=== PATIENT | male | born 1980 | race Caucasian/White ===

== ENCOUNTER 2020-12-19 11:50 | Emergency (ER) | payer OTHER ==
[~2020-12-19] VITALS: Ht 188 cm; Wt 90.9 kg
[2020-12-19] MEDS ORDERED: PEPC40TA12 PO (12:05)
[2020-12-19] MEDS ORDERED: PANTOPRAZOLE 40MG VIAL (C9113 PER 1) IV ONE (12:35)
[2020-12-19] MEDS ORDERED: NS 1,000 ML IV SCH (12:35)
[2020-12-19] MEDS ORDERED: METOCLOPRAMIDE INJ 10MG/2ML VIAL (J2765 PER 1) IV ONE (12:35)
[2020-12-19 12:41] LABS: BASO # 0.1 10^3/uL (0.0-0.2); BASO % 1.2 % (0.0-1.0); EOS # 0.2 10^3/uL (0.0-0.5); HEMATOCRIT 42.8 % (42.0-52.0); HEMOGLOBIN 14.2 g/dl (13.5-17.5); LYMPH # 1.5 10^3/uL (1.5-5.0); LYMPH % 35.6 % (24.0-44.0); MEAN CORPUSCULAR HEMOGLOBIN 29.6 pg (27.0-33.0); MEAN CORPUSCULAR HGB CONC 33.2 g/dl (32.0-36.5); MEAN CORPUSCULAR VOLUME 89.2 fl (80.0-96.0); MONO # 0.5 10^3/uL (0.0-0.8); MONO % 12.6 % (2.0-8.0); NEUTROPHILS % 46.4 % (36.0-66.0); PLATELET COUNT, AUTOMATED 262 10^3/uL (150-450); WHITE BLOOD COUNT 4.3 10^3/uL (4.0-10.0)
[2020-12-19 12:54] LABS: INR 0.99; PROTHROMBIN TIME 13.3 SECONDS (12.5-14.3)
[2020-12-19 12:55] LABS: PARTIAL THROMBOPLASTIN TIME 29.3 SECONDS (24.2-38.5)
[2020-12-19] MEDS: GASTROGRAFIN SOLUTION 30ML PO SCH ×2 (13:05→13:42)
[2020-12-19 13:08] LABS: BILIRUBIN,DIRECT 0.1 MG/DL (0.0-0.2); BILIRUBIN,TOTAL 0.3 MG/DL (0.2-1.0); C REACTIVE PROTEIN QUANTITATIV 0.45 MG/DL (0.00-0.30); TOTAL PROTEIN 7.1 GM/DL (6.4-8.2)
[2020-12-19 13:26] LABS: ERYTHROCYTE SEDIMENTATION RATE 6 mm/hr (0-15)
--- NOTE | 2020-12-19 13:32 | REP ---
INDICATION: Abdominal Pain. COMPARISON: None. TECHNIQUE: Supine and erect views of the abdomen and pelvis, frontal view chest. FINDINGS: There is no free intraperitoneal air. Diffuse air-filled bowel loops are seen throughout the abdomen and pelvis which do not appear to be significantly dilated, in a nonspecific pattern. There is no compelling evidence for small bowel obstruction. There are no air-fluid levels on the upright view. Phleboliths are seen in the inferior pelvis. A couple of metallic clips are seen in the right lower quadrant. No infiltrate is seen in either lung. The heart mediastinum are within normal limits. IMPRESSION: No free air and no compelling evidence of small bowel obstruction. Non-specific bowel gas pattern. Lungs are clear. <Electronically signed by Harvinder Grande > 12/19/20 [id number]
[2020-12-19] MEDS ORDERED: ISOVUE-370 76% 100ML VIAL As Ordered ONE (14:28)
--- NOTE | 2020-12-19 15:09 | REP ---
INDICATION: abdominal pain/bloating; r/o colitis. COMPARISON: None TECHNIQUE: Standard helical technique after the intravenous administration of 100 cc Isovue 370 and oral bowel preparatory contrast administration. FINDINGS: The lung bases are clear. The liver, gallbladder, spleen, pancreas, adrenal glands, and kidneys are within normal limits. The abdominal aorta and para aortic regions are within normal limits. The bowel loops and the mesenteries are within normal limits. There is no free fluid or free air. There is no mass or adenopathy. The osseous structures are within normal limits. IMPRESSION: CT findings are within normal limits. There is no evidence of acute disease. <Electronically signed by Raghav Sosa > 12/19/20 [id number]
[2020-12-19 15:45] VITALS: BP 122/86
[2020-12-19] MEDS ORDERED: CARA1TAB6 PO (15:50)
[2020-12-19] MEDS ORDERED: PROT1TAB2 PO (15:50)
== END 2020-12-19 16:03 | disposition home or self-care (01) ==
LOC: M ED 11:50
DX: K29.70 Gastritis, unspecified, without bleeding (principal); R50.9 Fever, unspecified; R19.7 Diarrhea, unspecified
CPT/HCPCS: 74021; 74177; 80047; 80076; 82150; 83690; 85025; 85610; 85652; 85730; 86140; 93041; 96361; 96374; 96375; 99284; C9113; J2765; Q9963; Q9967

== ENCOUNTER → 2023-09-20 | Outpatient (CLI) | payer OTHER ==
[~2023-09-20] MED LIST: CARA1TAB6 PO; ISOVUE-370 76% 100ML VIAL ONE; PEPC40TA12 PO; PROT1TAB2 PO
== END ==
LOC: M PLAIMG 14:05
PROVIDERS: ATTEND Family Medicine
DX: D86.0 Sarcoidosis of lung (principal)

== ENCOUNTER → 2023-11-26 | Outpatient (REF) | payer OTHER ==
[~2023-11-26] MED LIST changes: -ISOVUE-370 76% 100ML VIAL ONE
[2023-11-26 14:23] LABS: Trichomonas vaginalis (AMP) NOT DETECTED (NEGATIVE)
[2023-11-26 14:47] LABS: GC DNA AMPLIFICATION NEGATIVE (NEGATIVE)
== END ==
LOC: M LAB REF 12:19
PROVIDERS: ATTEND Physician Assistant
DX: R30.0 Dysuria (principal)